=== PATIENT | female | born 1975 | race Caucasian/White ===

== ENCOUNTER → 2016-05-29 | Outpatient (CLI) | payer OTHER ==
[~2016-05-29] MED LIST: B-COTAB18 PO; CHOL2000 PO; GLC/500 PO; LEVO50TA6 PO; LIRA18IN SC; MAGN500C PO; MULT-506 PO; PANT40TA PO; TRAM-10 PO; ZOLP10TA PO
[2016-05-31 14:54] LABS: CHLAMYDIA TRACH RNA*** NOT DETECTED (NOT DETECTED); GC (NEIS GONORRHOEAE)RNA** NOT DETECTED (NOT DETECTED)
== END | disposition home or self-care (01) ==
LOC: C.LAB1850 11:49
PROVIDERS: ATTEND Obstetrics & Gynecology
DX: Z11.3 Encounter for screening for infections with a predominantly sexual mode of transmission (principal)

== ENCOUNTER → 2016-05-29 | Outpatient (CLI) | payer OTHER | END | disposition home or self-care (01) | LOC: C.PAPS 14:10 | PROVIDERS: ATTEND Obstetrics & Gynecology | DX: Z12.4 Encounter for screening for malignant neoplasm of cervix (principal) ==

== ENCOUNTER → 2016-08-24 | Outpatient (CLI) | payer OTHER ==
[2016-08-24 13:44] LABS: ESTIMATED AVERAGE GLUCOSE 128 mg/dl; HA1C FLAG Normal (Normal)
[2016-08-24 14:05] LABS: ALB/GLOB RATIO 0.8 (0.9-2); ALT/SGPT 43 U/L (12-78); AST/SGOT 13 U/L (15-37); BLOOD UREA NITROGEN 9 mg/dl (7-18); BUN/CREATININE RATIO 9.8 (10-20); CALCIUM 8.8 mg/dl (8.5-10.1); CARBON DIOXIDE 29 mmol/L (21-32); CHLORIDE 104 mmol/L (98-107); CREATININE 0.91 mg/dl (0.60-1.20); GLUCOSE 76 mg/dl (70-99); SODIUM 139 mmol/L (136-145)
[2016-08-24 14:17] LABS: ALKALINE PHOSPHATASE 79 U/L (45-117)
== END | disposition home or self-care (01) ==
LOC: C.LAB1850 12:46
PROVIDERS: ATTEND Nurse Practitioner Family
DX: R74.8 Abnormal levels of other serum enzymes (principal); E11.9 Type 2 diabetes mellitus without complications

== ENCOUNTER → 2016-12-26 | Outpatient (CLI) | payer OTHER ==
[~2016-12-26] MED LIST changes: +OPTIRAY 320 IV PRN
--- NOTE | 2016-12-26 12:25 | DIAGNOSTIC IMAGING REPORT ---
ABD WITH IV CONTRAST ONLY (CT) CLINICAL HISTORY: 41 years-old Female presenting with right upper quadrant pain for years, possible right lower quadrant pain. TECHNIQUE: Multidetector CT of the abdomen was performed after the administration of intravenous contrast. IV contrast: 100 mL of Optiray 320. A dose lowering technique was used consistent with the principles of ALARA (as low as reasonably achievable). COMPARISON: None. CT DOSE (mGy.cm): The estimated cumulative dose is 756.24 mGycm. FINDINGS: [employer] topogram: Cholecystectomy clips noted. Lung bases: Minimal dependent changes likely atelectasis. Normal heart size. No pericardial or pleural effusion. Liver: Suggestion of hepatic steatosis. Normal liver morphology. No focal lesion. Patent hepatic vasculature. Biliary: No intrahepatic or extrahepatic biliary ductal dilatation. Gallbladder surgically absent. Pancreas: Normal. Spleen: Normal. Adrenal glands: Normal. Kidneys and ureters: No nephrolithiasis. No hydronephrosis. Normal renal parenchyma. Proximal ureters normal. Bowel: Normal. No bowel obstruction. Peritoneal cavity: No free fluid or intraperitoneal gas. Vasculature: Aorta and IVC patent and normal in caliber. Lymph nodes: No enlarged lymph nodes in the abdomen. Abdominal wall: Normal. Musculoskeletal: Normal. IMPRESSION: 1. Hepatic steatosis. Correlate with liver function tests for evidence steatohepatitis, which can be a cause for right upper quadrant pain. 2. No acute intra-abdominal pathology. Electronically signed by: Rio Peck M.D. 12/26/2016 12:24 PM Dictated Date/Time: 12/26/2016 12:19 PM
== END | disposition home or self-care (01) ==
LOC: C.CTS 11:34
PROVIDERS: ATTEND Internal Medicine Hematology & Oncology
DX: R10.31 Right lower quadrant pain (principal); K76.0 Fatty (change of) liver, not elsewhere classified

== ENCOUNTER → 2017-01-25 | Day surgery (SDC) | payer OTHER ==
[2017-01-11 13:24] VITALS: Ht 177.8 cm; Wt 109.1 kg
[~2017-01-25] VITALS: Ht 177.8 cm; Wt 109.1 kg
[~2017-01-25] MED LIST changes: -GLC/500 PO; -LEVO50TA6 PO; +LIDOCAINE HCL 2% 2 ML VIAL (20MG/ML) ONE; -LIRA18IN SC; -MULT-506 PO; -OPTIRAY 320 IV PRN; +PROPOFOL IV EMULSION 10 MG/ML 20 ML VIAL IV ONE; -ZOLP10TA PO
--- NOTE | 2017-01-25 10:17 | Endo History and Physical ---
History & Physical Date of Service: Jan 25, 2017. Chief Complaint: RUQ pain Referring Physician: Dr. Naveen Tapia History of Present Illness 41 yo CF who presents for EGD secondary to RUQ abdominal pain. Past Surgical History Hx Cardiac Surgery: No Hx Internal Defibrillator: No Hx Pacemaker: No Hx Abdominal Surgery: Yes (AMINATA) Hx of Implantable Prosthesis: No Hx Post-Op Nausea and Vomiting: No Hx Cancer Surgery: No Hx Thoracic Surgery: No Hx Orthopedic: No Hx Urinary Tract Surgery: Yes (RECTOCELE AND REVISION, VAGINOPLASTY) Family History Polyp Social History Smoking Status: Current Every Day Smoker Hx Substance Use: No Hx Alcohol Use: No Allergies Coded Allergies: Oxycodone (Verified Allergy, Unknown, HIVES AND THROAT CLOSING SHUT, ) GIVEN AFTER SURGERY Current Medications Reported Home Medications Medications Dose Route/Sig Max Daily Dose Days Date Category Protonix (Pantoprazole Sodium) 40 Mg Tab 1 Tab PO DAILY 30 01/25/17 Reported Magnesium (Magnesium Oxide (Mg Supplement) 500 Mg Cap 1 Cap PO 3XWK 10/10/16 Reported Ultram (Tramadol HCl) 50 Mg Tab 1 Tab PO BID PRN 30 10/10/16 Reported Vital Signs Weight (Kilograms): 109.09 Height (Feet): 5 Height (Inches): 10 Date Time Temp Pulse Resp B/P (MAP) Pulse Ox O2 Delivery O2 Flow Rate FiO2 01/25/17 09:57 36.9 71 16 94/66 (75) 98 Room Air Physical Exam General Appearance: WD/WN, no apparent distress Respiratory/Chest: Auscultation: breath sounds normal Cardiovascular: Heart Auscultation: RRR Abdomen: Bowel Sounds: normal Inspection & Palpation: soft, non-distended, no tenderness, guarding & rebound Assessment and Plan Assessment: 41 yo CF who presents for EGD secondary to RUQ abdominal pain. Plan: Proceed with EGD.
--- NOTE | 2017-01-25 11:02 | GI REPORT ---
Procedure Date: 01/25/2017 10:27 AM Procedure: Upper GI endoscopy Indications: Abdominal pain in the right upper quadrant Medicines: Monitored Anesthesia Care Complications: No immediate complications. Estimated Blood Loss: Estimated blood loss: none. Procedure: Pre-Anesthesia Assessment: - Prior to the procedure, a History and Physical was performed, and patient medications and allergies were reviewed. The patient's tolerance of previous anesthesia was also reviewed. The risks and benefits of the procedure and the sedation options and risks were discussed with the patient. All questions were answered, and informed consent was obtained. Prior Anticoagulants: The patient has taken no previous anticoagulant or antiplatelet agents. ASA Grade Assessment: II - A patient with mild systemic disease. After reviewing the risks and benefits, the patient was deemed in satisfactory condition to undergo the procedure. After obtaining informed consent, the endoscope was passed under direct vision. Throughout the procedure, the patient's blood pressure, pulse, and oxygen saturations were monitored continuously. The On-site loaner was introduced through the mouth, and advanced to the second part of duodenum. The upper GI endoscopy was accomplished without difficulty. The patient tolerated the procedure well. Findings: The esophagus was normal. A small hiatus hernia was present. Biopsies were taken with a cold forceps in the gastric antrum for Helicobacter pylori testing. The examined duodenum was normal. Impression: - Normal esophagus. - Small hiatus hernia. - Normal examined duodenum. - Biopsies were taken with a cold forceps for Helicobacter pylori testing. Recommendation: - Resume previous diet. - Continue present medications. - Await pathology results. - Return to primary care physician as previously scheduled. Oscar Sorenson DO 01/25/2017 11:01:46 AM This report has been signed electronically. Note Initiated On: 01/25/2017 10:27 AM I attest to the content of the Intraoperative Record and orders documented therein, exceptions below
--- NOTE | 2017-01-25 11:04 | Discharge Instructions ---
Endoscopy Patient Instructions Date / Procedure(s) Performed Jan 25, 2017. EGD Allergy Information Coded Allergies: Oxycodone (Verified Allergy, Unknown, HIVES AND THROAT CLOSING SHUT, ) GIVEN AFTER SURGERY Discharge Date / Findings Jan 25, 2017. Hiatal hernia Gastric antrum biopsies Medication Instructions OK to resume all medications today as prescribed Reported Home Medications Medications Dose Route/Sig Max Daily Dose Days Date Category Protonix (Pantoprazole Sodium) 40 Mg Tab 1 Tab PO DAILY 30 01/25/17 Reported Magnesium (Magnesium Oxide (Mg Supplement) 500 Mg Cap 1 Cap PO 3XWK 10/10/16 Reported Ultram (Tramadol HCl) 50 Mg Tab 1 Tab PO BID PRN 30 10/10/16 Reported Provider Instructions Activity Restrictions - No exercising or heavy lifting for 24 hours. - Do not drink alcohol the day of the procedure. - Do not drive a car or operate machinery until the day after the procedure. - Do not make any important decisions or sign important papers in 24 hours after the procedure. Following Day: - Return to full activity which may include returning to work/school. Diet Start your diet with liquids and light foods (jello, soup, juice, toast). Then eat your usual diet if not nauseated. Treatment For Common After Affects For mild abdominal pain, bloating, or excessive gas: - Rest - Eat lightly - Lie on right side Follow-Up Information Follow-up with Dr. Naveen Tapia as scheduled Anesthesia Information What You Should Know You have had a procedure that required some medicine to reduce anxiety and discomfort. This treatment is called moderate sedation. After receiving the treatment, you may be sleepy, but you will be able to breathe on your own. The effects of the treatment may last for several hours. Follow these instructions along with Activity/Diet recommendations noted above: * Do NOT do anything where dizziness or clumsiness would be dangerous. * Rest quietly at home today, then you can be up and about tomorrow. * Have a responsible person stay with you the rest of today. * You may have had an I.V. today. If so, you may take the dressing off later today. Recommendations Call your doctor if: * Trouble breathing * Continuous vomiting for more than 24 hours * Temperature above 101 degrees * Severe abdominal pain or bloating * Pain not relieved by pain medicine ordered * There is increased drainage or redness from any incision * A large amount of rectal bleeding greater than 2-3 tablespoons. (If you had a polyp/s removed or have hemorrhoids, a small amount of blood - from the rectum is to be expected.) * You have any unanswered questions or concerns. IN THE EVENT OF A SERIOUS EMERGENCY, GO TO THE NEAREST EMERGENCY ROOM Your discharge instructions were prepared by provider Oscar Sorenson. Patient Instructions Signature Page Mitzi Shah Patient (or Guardian) Signature/Date: I have read and understand the instructions given to me by my caregivers. Caregiver/RN/Doctor Signature/Date: The above-named patient and/or guardian has received patient instructions on this date. + Original Patient Signature Page (only) stays with chart. Please make copy for patient.
--- NOTE | 2017-01-25 11:21 | Anesthesiology Progress Note ---
Anesthesia Post Op Note Date & Time Jan 25, 2017 at 11:21 Vital Signs Pain Intensity: 0 Vital Signs Past 12 Hours Date Time Temp Pulse Resp B/P (MAP) Pulse Ox O2 Delivery O2 Flow Rate FiO2 01/25/17 11:17 80 16 98/61 (73) 98 Room Air 01/25/17 11:02 81 16 103/58 (73) 98 Room Air 01/25/17 09:57 36.9 71 16 94/66 (75) 98 Room Air Notes Mental Status: alert / awake / arousable, participated in evaluation Pt Amnestic to Procedure: Yes Nausea / Vomiting: adequately controlled Pain: adequately controlled Airway Patency, RR, SpO2: stable & adequate BP & HR: stable & adequate Hydration State: stable & adequate Anesthetic Complications: no major complications apparent
[2017-01-25 11:32] VITALS: BP 105/64; PULSE 81; O2SAT 98
== END | disposition home or self-care (01) ==
LOC: C.GI 09:39
PROVIDERS: ATTEND Internal Medicine
DX: R10.11 Right upper quadrant pain (principal); Z90.49 Acquired absence of other specified parts of digestive tract; Z83.71 Family history of colonic polyps; F17.200 Nicotine dependence, unspecified, uncomplicated; K21.9 Gastro-esophageal reflux disease without esophagitis; Z86.69 Personal history of other diseases of the nervous system and sense organs; K76.0 Fatty (change of) liver, not elsewhere classified; E11.9 Type 2 diabetes mellitus without complications; F41.9 Anxiety disorder, unspecified; F32.9 Major depressive disorder, single episode, unspecified; E66.9 Obesity, unspecified; K44.9 Diaphragmatic hernia without obstruction or gangrene